=== PATIENT | female | born 1965 | race Caucasian/White ===

== ENCOUNTER 2017-08-17 14:24 | Observation (INO) ==
[2017-08-17] MEDS ORDERED: Naloxone 0.4 MG/ML INJ IVP PRN (17:23)
[2017-08-17] MEDS ORDERED: INSULIN LISPRO 100 UNIT SQ SCH (17:45)
--- NOTE | 2017-08-17 18:00 | Internal Med History&Physical ---
Date of Encounter: 08/17/17 Time of Encounter: 17:42 Assessment and Plan (1) Chest pain Current visit: Yes Status: Acute 52/female Transferred from another hospital to this hospital for persistent chest pain. EKG: Within acceptable range/no active ongoing cardiac issue. Echocardiogram: 09/2015: EF: 65%, normal diastolic function, no evidence of pulmonary hypertension. Holter monitor: 03/2016: Sinus rhythm, average heart rate 89 bpm, no arrhythmias , no significant ectopy Cardiac catheter: 09/2015: Stent placed from prior procedure in proximal LAD is patent, EF: 65% Plan: Admit as observation. Resume home medication. Cycle troponin. Echocardiogram. If 3 troponin negative/echocardiogram normal then please consider cardiology evaluation before ordering stress test. Qualifiers: Chest pain type: unspecified Qualified Code(s): R07.9 - Chest pain, unspecified (2) Diabetes Current visit: No Status: Acute We will follow the recommendations from subcutaneous insulin order set. Qualifiers: Diabetes mellitus type: type 2 Diabetes mellitus complication status: with circulatory complication Diabetes mellitus complication detail: with other circulatory complications Diabetes mellitus longitudinal float operator insulin use: unspecified longitudinal float operator insulin use status Qualified Code(s): E11.59 - Type 2 diabetes mellitus with other circulatory complications (3) HTN (hypertension) Current visit: No Status: Acute Within acceptable range Qualifiers: Hypertension type: essential hypertension Qualified Code(s): I10 - Essential (primary) hypertension (4) DVT prophylaxis Current visit: Yes Status: Acute SCD Medical decision making: This patient has a moderate to severe risk of worsening in spite of being on appropriate medication due to the underlying risk factors. Internal Medicine - H&P: HPI Chief complaint: chest pain Admitted From: Hospital to Hospital Transfer Plans for Post Hospital Care: Home History of present illness: 52/female Brief past medical history: Diabetes, hypertension, dyslipidemia, coronary artery disease, History of present medical illness :Ms. Schroeder is a 52 year old female who was transferred from [facility] to this hospital. This patient was hospitalized in the [facility] for more than 4 days for chest pain. Patient still has ongoing chest pain and she is very upset regarding same. Patient tells that her chest pain started initially around a week ago and it was precordial in nature, radiating to the jaw and the left arm, associated with pressure sensation like an elephant is sitting on her chest. Patient claims that she was receiving 2 mg morphine every 2 hours and at Hospital which was only able to control her pain marginally. Patient claims that minimal activity were some subtle chest pain and arrest and then medication helps her to get chest pain better. Patient denies abdominal pain, nausea, vomiting, dizziness and diarrhea. Patient's contracting officer is Dr. Beck from this healthcare system. Reason for transfer: Persistent ongoing chest pain for more than 5 days with initial cardiology workup negative. Family history: Strong coronary artery disease from mother sides Past Med Surg Social Fam HX - Past Medical History Medical history: arthritis, CHF, coronary artery disease, CVA, diabetes, GERD, hyperlipidemia, hypertension, kidney stones, migraine, myocardial infarction, renal disease, TIA Psychiatric history: anxiety, depression - Past Surgical History Surgical History: angioplasty/stent, cholecystectomy, hysterectomy, other - Social History Smoking Status: Never smoker Smokeless Tobacco Status: No Alcohol use: none Drug use: none - Family History Father Adopted: [place]: Riky BrianCataRae Age: 69 Family Member Ethnicity: Non- Living Status: Age at : 69 Cause of : brain anuerysm Hx Family Cardiac Disorders: Yes (CAD, double bypass) Hx Family Respiratory Disorders: No Hx Family Cancer: No Hx Family GI Disorders: No Hx Family Genitourinary Disorders: No Hx Family Endocrine Disorder: No Hx Family Musculoskeletal Disorders: Yes (Arthiritis) Hx Family Neuromuscular Disorders: No Hx Family Neurologic Disorders: Yes (Brain aneurysm) Hx Family HEENT Disorders: No Hx Family Autoimmune Disorders: No Hx Family Reproductive Disorders: No Hx Family Psychosocial Disorders: No Hx Family Medical Disorders: No Mother Adopted: [place]: Hermelinda Jang Age: 65 Family Member Ethnicity: Non- Living Status: Age at : 65 Cause of : colon cancer Hx Family Cardiac Disorders: Yes (7 bypasses, CAD, HTN) Hx Family Respiratory Disorders: No Hx Family Cancer: Yes (colon) Hx Family GI Disorders: No Hx Family Genitourinary Disorders: No Hx Family Endocrine Disorder: Yes (DM Type 1) Hx Family Musculoskeletal Disorders: Yes (Arthiritis,) Hx Family Neuromuscular Disorders: Yes (Neuropathy) Hx Family Neurologic Disorders: No Hx Family HEENT Disorders: No Hx Family Autoimmune Disorders: No Hx Family Reproductive Disorders: No Hx Family Psychosocial Disorders: No Hx Family Medical Disorders: No Internal Medicine - H&P: Meds Aspirin Enteric Coated [Aspirin EC] 81 mg PO DAILY 05/20/15 [History] Furosemide [Lasix] 20 mg PO DAILY 05/20/15 [History] Gabapentin [Neurontin] 800 mg PO QID 05/20/15 [History] Lisinopril [Zestril] 20 mg PO DAILY 05/20/15 [History] Metoprolol [Lopressor] 25 mg PO BID 05/20/15 [History] Potassium Chloride [Klor-Con Sprinkle] 10 meq PO DAILY 05/20/15 [History] Ropinerole [Requip] 1 mg PO QID 05/20/15 [History] Pantoprazole Sodium [Protonix] 40 mg PO DAILY 09/25/15 [History] clonazePAM [Klonopin] 2 mg PO HS 09/26/15 [History] Albuterol Sulfate [Ventolin Hfa] 2 puff IH Q4H 12/23/16 [History] Clopidogrel [Plavix] 75 mg PO DAILY 12/23/16 [History] Cyclobenzaprine [Flexeril] 10 mg PO TID 12/23/16 [History] Doxepin HCl 10 mg PO HS 12/23/16 [History] Escitalopram Oxalate 10 mg PO DAILY 12/23/16 [History] Ferrous Sulfate [Iron] 325 mg PO BID 12/23/16 [History] HYDROcodone/Acet 5/325 mg [Tererro 5-325 mg] 1 tab PO Q6H PRN #3 tab 12/23/16 [Rx] Insulin Glargine,Hum.rec.anlog [[place] Solostar] 40 units SQ DAILY 12/23/16 [ History] Insulin LISPRO [Humalog Kwikpen U-100] 100 unit SQ AD 12/23/16 [History] Isosorbide MONOnitrate (24 HR) [Imdur] 30 mg PO DAILY 12/23/16 [History] Lisinopril [Zestril] 5 mg PO DAILY 12/23/16 [History] Melatonin 3 mg PO HS 12/23/16 [History] Quetiapine Fumarate [SEROquel] 100 mg PO HS 12/23/16 [History] Ranolazine [Ranexa] 500 mg PO BID 12/23/16 [History] RisperiDONE [Risperdal] 0.5 mg PO BID 12/23/16 [History] Simvastatin [Zocor] 40 mg PO HS 12/23/16 [History] clonazePAM [Klonopin] 1 mg PO BID 12/23/16 [History] 3 Allergy/AdvReac Type Severity Reaction Status Date / Time ketorolac [From Toradol] Allergy Rash Verified 03/24/16 00:28 naproxen [From Naprosyn] Allergy Rash Verified 12/23/16 12:52 sulfamethoxazole Allergy Rash Verified 03/24/16 00:28 [From Bactrim] trimethoprim [From Bactrim] Allergy Rash Verified 03/24/16 00:28 tramadol AdvReac Nausea Verified 03/24/16 00:28 All Systems PM: A 10-system review of systems was performed and is negative for pertinent findings except as documented above in the HPI. - Constitutional Constitutional: no chills, no fever(s), no night sweats - EENT Eyes: no change in vision, no discharge, no pain, no photophobia Ears: no ear discharge, no ear pain, no tinnitus Nose, mouth and throat: no dysphagia, no nasal discharge, no neck pain, no sore throat - Cardiovascular Cardiovascular ROS IM: chest pain, diaphoresis, no dyspnea, no lightheadedness, no palpitations, no syncope - Respiratory Respiratory: no cough, no dyspnea, no wheezing, no excessive phlegm production - Gastrointestinal Gastrointestinal: no abdominal pain, no diarrhea, no hematemesis, no hematochezia, no melena, no nausea, no vomiting - Genitourinary Genitourinary: no change in urinary stream, no dysuria, no flank pain, no hematuria - Musculoskeletal Musculoskeletal ROS IM: no numbness, no tingling - Integumentary Integumentary IM: no rash, no unusual bruising - Neurological Neurological ROS: no confusion, no convulsions, no focal weakness, no numbness, no tingling, no tremor(s) - Hematologic/Lymphatic Hematologic/Lymphatic: no easy bruising - Constitutional Vitals: Temp Pulse Resp BP Pulse Ox 98.4 F 75 16 143/79 100 08/17/17 17:30 08/17/17 17:30 08/17/17 16:45 08/17/17 17:30 08/17/17 17:30 General appearance: Present: A&O X 3, pleasant, no acute distress, answers questions appropriately - Head Head exam: Present: atraumatic, normocephalic - Eye Eye exam: Present: PERRL, conjuntiva pink, sclera anicteric Pupils: Present: PERRL - Neck Neck exam general surgery: Present: supple, trachea midline. Absent: lymphadenopathy - Respiratory Respiratory exam: Present: CTAB. Absent: accessory muscle use, rales, rhonchi, wheezes - Cardiovascular Cardiovascular exam: Present: RRR, +S1, +S2. Absent: diastolic murmur, gallop, rubs, systolic murmur - GI/Abdominal GI/Abdominal exam: Present: normal bowel sounds, soft, no peritoneal signs. Absent: distended, tenderness - Extremities Exam Extremities exam: Present: warm, radial pulses palpable and symmetrical. Absent : calf tenderness, cyanotic, pedal edema - Neurological Exam Neurological exam: Present: CN II-XII intact, oriented X3, no focal deficits. Absent: pronater drift, facial droop, speech deficit - Skin Skin exam: Present: dry, intact
[2017-08-17] MEDS: *HR* Morphine 2 MG/ML SYRINGE IVP PRN ×3 (18:29→22:22)
[2017-08-17 18:39] LABS: Basophils % 0.3 %; Eosinophils # 0.1 K/mcL (0.0-0.6); Eosinophils % 1.6 %; Hematocrit 32.6 % (35.3-44.9); Hemoglobin 11.1 g/dL (11.5-15.4); Immature Granulocytes % 0.1 % (0-4); Lymphocytes # 2.8 K/mcL (0.6-4.6); Lymphocytes % 39.1 %; Mean Corpuscular Volume 85.1 fL (83.0-100.0); Mean Platelet Volume 9.7 fL (9.4-12.4); Monocytes # 0.4 K/mcL (0.0-1.3); Monocytes % 5.3 %; Neutrophils # 3.8 K/mcL (1.6-8.9); Platelet Count 233 K/mcL (140-400); Red Blood Count 3.83 M/mcL (3.82-4.97); Red Cell Distribution Width 12.9 % (11.5-14.5); Segmented Neutrophils % 53.6 %
[2017-08-17 19:00] LABS: Alanine Aminotransferase 49 Units/L (7-52); Albumin 3.9 g/dL (3.5-5.7); Albumin/Globulin Ratio 1.3 (1.1-2.2); Alkaline Phosphatase 149 Units/L (34-104); Aspartate Amino Transferase 21 Units/L (13-39); BUN/Creatinine Ratio 19 (6-26); Bilirubin,Total 0.3 mg/dL (0.3-1.0); Blood Urea Nitrogen 14 mg/dL (6-20); Calcium 9.3 mg/dL (8.6-10.3); Carbon Dioxide 32 mEq/L (23-29); Chloride 103 mEq/L (98-107); Globulin 3.1 g/dL (2.4-3.5); Glucose 97 mg/dL (70-105); Magnesium 2.3 mg/dL (1.6-2.6); Osmolality,Calculated 290 (280-300); Sodium 140 mEq/L (136-145); eGFR For African Americans > 60 (> 60); eGFR For Non-African Americans > 60 (> 60)
[2017-08-17] MEDS: Ranolazine 500 MG TAB.ER.12H PO SCH (20:15)
[2017-08-17] MEDS: risperiDONE 0.25 MG TABLET PO SCH (20:18)
[2017-08-17] MEDS: rOPINIRole 1 MG TABLET PO SCH (20:28)
[2017-08-17] MEDS: Gabapentin 400 MG CAPSULE PO SCH (20:28)
[2017-08-17] MEDS ORDERED: clonazePAM 1 MG TABLET PO SCH ×3 (21:00→21:48)
[2017-08-17] MEDS ORDERED: Doxepin Hcl [Doxepin Hcl] 10 MG PO SCH (21:00)
[2017-08-17] MEDS ORDERED: Melatonin 3 MG TABLET PO SCH (21:00)
[2017-08-18] MEDS: *HR* Morphine 2 MG/ML SYRINGE IVP PRN ×4 (00:34→08:46)
[2017-08-18 05:55] LABS: Basophils % 0.4 %; Eosinophils # 0.1 K/mcL (0.0-0.6); Eosinophils % 1.8 %; Hematocrit 32.4 % (35.3-44.9); Hemoglobin 10.8 g/dL (11.5-15.4); Immature Granulocytes % 0.1 % (0-4); Lymphocytes # 3.3 K/mcL (0.6-4.6); Lymphocytes % 49.4 %; Mean Corpuscular HGB Conc 33.3 g/dL (31.6-35.5); Mean Corpuscular Hemoglobin 28.6 pg (28.0-33.3); Mean Corpuscular Volume 85.7 fL (83.0-100.0); Mean Platelet Volume 9.9 fL (9.4-12.4); Monocytes # 0.3 K/mcL (0.0-1.3); Monocytes % 4.8 %; Neutrophils # 2.9 K/mcL (1.6-8.9); Platelet Count 244 K/mcL (140-400); Red Blood Count 3.78 M/mcL (3.82-4.97); Red Cell Distribution Width 13.2 % (11.5-14.5); Segmented Neutrophils % 43.5 %
[2017-08-18 06:04] LABS: INR 0.9
[2017-08-18 06:07] LABS: Activated Partial Thrombo Time 26.7 Seconds (26.0-36.0)
[2017-08-18 06:56] LABS: Alanine Aminotransferase 40 Units/L (7-52); Albumin 3.9 g/dL (3.5-5.7); Albumin/Globulin Ratio 1.3 (1.1-2.2); Alkaline Phosphatase 139 Units/L (34-104); Aspartate Amino Transferase 18 Units/L (13-39); BUN/Creatinine Ratio 17 (6-26); Bilirubin,Total 0.2 mg/dL (0.3-1.0); Blood Urea Nitrogen 13 mg/dL (6-20); Calcium 9.2 mg/dL (8.6-10.3); Carbon Dioxide 30 mEq/L (23-29); Chloride 103 mEq/L (98-107); Chol/HDL Ratio 5.3 (0-4.9); Cholesterol 181 mg/dL (< 200); Globulin 2.9 g/dL (2.4-3.5); Glucose 138 mg/dL (70-105); HDL Cholesterol 34 mg/dL (40-59); Magnesium 2.1 mg/dL (1.6-2.6); Osmolality,Calculated 292 (280-300); Phosphorous 3.4 mg/dL (2.7-4.5); Sodium 140 mEq/L (136-145); Total Protein 6.8 g/dL (6.4-8.9); Triglycerides 536 mg/dL (< 150); eGFR For African Americans > 60 (> 60); eGFR For Non-African Americans > 60 (> 60)
[2017-08-18] MEDS ORDERED: Aspirin Enteric Coated 81 MG Tablet PO SCH (09:00)
[2017-08-18] MEDS ORDERED: Furosemide 20 MG TABLET PO SCH (09:00)
[2017-08-18] MEDS ORDERED: Isosorbide MONOnitrate (24 HR) 30 MG TAB.ER.24H PO SCH (09:00)
[2017-08-18] MEDS ORDERED: Insulin DETEMIR 100 UNIT/ML X5UNITS SQ SCH (09:00)
[2017-08-18] MEDS ORDERED: *HR* Morphine 2 MG/ML SYRINGE IVP PRN (09:07)
[2017-08-18] MEDS ORDERED: Regadenoson 0.4 MG/5 ML SYRINGE IVP ONE (11:17)
--- NOTE | 2017-08-18 13:57 | Electrocardiograph Report ---
[address] [place] [address] Test Date: 2017-08-17 Pat Name: Mer Schroeder Department: 113 Room: 3B45 Gender: F Assistant Food Service Manager: : 1965 Requested By: Aquiles Briones Order Number: [id number] Reading MD: Jayne Carrillo Measurements Intervals [place] Rate: 72 P: 64 ND: 144 QRS: 38 QRSD: 86 T: 43 QT: 369 QTc: 393 Interpretive Statements SINUS RHYTHM Electronically Signed On 08-18-2017 13:55:20 EST by Jayne Carrillo
[2017-08-18] MEDS: Gabapentin 400 MG CAPSULE PO SCH ×3 (14:56→19:16)
[2017-08-18] MEDS: Ranolazine 500 MG TAB.ER.12H PO SCH (14:58)
[2017-08-18] MEDS: risperiDONE 0.25 MG TABLET PO SCH (14:59)
[2017-08-18] MEDS ORDERED: clonazePAM 1 MG TABLET PO ONE (15:00)
[2017-08-18] MEDS: rOPINIRole 1 MG TABLET PO SCH ×3 (15:01→19:16)
[2017-08-18 15:54] VITALS: BP 132/82
--- NOTE | 2017-08-18 16:41 | Discharge Summary ---
Date of Encounter: 08/18/17 Time of Encounter: 09:05 - Discharge Diagnosis (1) Chest pain Priority: Primary Status: Acute Comments: Patient presented to emergency department from [facility] for persistent chest pain and was admitted for 4 days. Onset of chest pain was approximately one week ago, midsternal radiating to posterior neck and occiput per her account today, admission note reports radiation to left and left arm. Patient states that it is a heaviness that is intermittent. Chest is tender to palpation and pain increases with deep inspiration. Both here and at [facility], she received receiving 2 mg of morphine every 2 hours which was only marginally able to control her pain. Due to patient's slurred speech and inability to focus her eyes, and decreased it to 2 mg every 4 hours. Patient verbalizes concern due to mother's history of coronary artery disease. Patient has risk factors including elevated triglycerides, poorly controlled diabetes, and hypertension. Echocardiogram showed LVEF of 60% with normal LV diastolic function and no significant valvular dysfunction. Perfusion imaging was negative for ischemia or infarct for stress test with gated EF of 65%. Suggest the chest pain is primarily musculoskeletal in nature. I did run an [facility] report, patient receives gabapentin and clonazepam regularly , no narcotic analgesic prescriptions since Dec, 2016. Patient may continue heat or ice to chest wall, Tylenol for pain. Qualifiers: Chest pain type: unspecified Qualified Code(s): R07.9 - Chest pain, unspecified (2) Diabetes Priority: Secondary Status: Chronic Comments: Uncontrolled. A1c 12.2% one year ago. Patient could benefit from continued diabetes education. After discharge continue Accu-Chek schedule and home medications. Continue to encourage diabetic diet. Qualifiers: Diabetes mellitus type: type 2 Diabetes mellitus complication status: with circulatory complication Diabetes mellitus complication detail: with other circulatory complications Diabetes mellitus laser print operator insulin use: unspecified laser print operator insulin use status Qualified Code(s): E11.59 - Type 2 diabetes mellitus with other circulatory complications (3) HTN (hypertension) Priority: Secondary Status: Chronic Comments: Chronic. Continue home medications. Qualifiers: Hypertension type: essential hypertension Qualified Code(s): I10 - Essential (primary) hypertension (4) Coronary artery disease Priority: Secondary Status: Chronic Comments: Chronic. Patient had a cardiac catheter in September, with stent placed from prior procedure and proximal LAD was patent, EF preserved. Continue aspirin, Plavix, Imdur, beta jean-claude, and Ranexa. Qualifiers: Coronary Disease-Associated Artery/Lesion type: menominee artery [place] vs. transplanted heart: menominee heart Associated angina: with unspecified angina Qualified Code(s): I25.119 - Atherosclerotic heart disease of menominee coronary artery with unspecified angina pectoris (5) DVT prophylaxis Priority: Secondary Status: Acute Comments: Encourage early ambulation. - Discharge Medications Home Medications: Aspirin Enteric Coated [Aspirin EC] 81 mg PO DAILY 05/20/15 [History] Gabapentin [Neurontin] 800 mg PO QID 05/20/15 [History] Potassium Chloride [Klor-Con Sprinkle] 10 meq PO DAILY 05/20/15 [History] Ropinerole [Requip] 1 mg PO QID 05/20/15 [History] Pantoprazole Sodium [Protonix] 40 mg PO DAILY 09/25/15 [History] Albuterol Sulfate [Ventolin Hfa] 2 puff IH Q4H PRN 12/23/16 [History] Clopidogrel [Plavix] 75 mg PO DAILY 12/23/16 [History] Cyclobenzaprine [Flexeril] 10 mg PO TID PRN 12/23/16 [History] Ferrous Sulfate [Iron] 325 mg PO BID 12/23/16 [History] Insulin Glargine,Hum.rec.anlog [[place]] 40 units SQ DAILY 12/23/16 [ History] Insulin LISPRO [Humalog Kwikpen U-100] 100 unit SQ AD 12/23/16 [History] Isosorbide MONOnitrate (24 HR) [Imdur] 30 mg PO DAILY 12/23/16 [History] Melatonin 3 mg PO HS 12/23/16 [History] clonazePAM [Klonopin] 1 mg PO BID 12/23/16 [History] Escitalopram [Lexapro] 10 mg PO DAILY tablet 08/18/17 [Rx] Furosemide [Lasix] 20 mg PO DAILY tablet 08/18/17 [Rx] Lisinopril [Zestril] 5 mg PO DAILY tablet 08/18/17 [Rx] Metoprolol [Lopressor] 25 mg PO BID tablet 08/18/17 [Rx] Patient Taking Own Medication 1 each PO HS each 08/18/17 [Rx] Quetiapine Fumarate [Seroquel] 100 mg PO HS tablet 08/18/17 [Rx] Ranolazine [Ranexa] 500 mg PO BID tab.er.12h 08/18/17 [Rx] Simvastatin [Zocor] 40 mg PO HS tablet 08/18/17 [Rx] risperiDONE [RisperDAL] 0.5 mg PO BID tablet 08/18/17 [Rx] Allergies/Adverse Reactions: 3 Allergy/AdvReac Type Severity Reaction Status Date / Time ketorolac [From Toradol] Allergy Rash Verified 08/18/17 11:14 naproxen [From Naprosyn] Allergy Rash Verified 08/18/17 11:14 sulfamethoxazole Allergy Rash Verified 08/18/17 11:14 [From Bactrim] trimethoprim [From Bactrim] Allergy Rash Verified 08/18/17 11:14 tramadol AdvReac Nausea Verified 08/18/17 11:14 Procedures/tests Complete & Pending: Procedures Performed prior 72 hours Category Date Time Status NM prema perf SPECT multi [NM] Routine Exams 08/18/17 10:29 Taken ECG 12 lead ECG [ECG] Routine Y 08/17/17 17:23 Completed EV echocardiogram Routine Y 08/18/17 18:09 Completed SP pharm nuclear stress Routine Y 08/18/17 10:28 Completed Date of admission: 08/17/17 16:38 Discharging clinician: Jacquie Maldonado Anticipated date of discharge: 08/18/17 - Patient Status Disposition: Home, Self-Care Condition: Good Functional capacity at discharge: independent ambulation Overall status at discharge: patient is back to baseline - Discharge Instructions Follow Up With: Keeley Grimes DIVISION HUMAN RESOURCES MANAGER [Advanced Practice Nurse] - 08/25/17 2:00 pm Additional Instructions: Follow up with your PCP in the next 7-10 days for a recheck. Return to your normal diet and activities as tolerated. Resume your normal home medications Return to the ER as needed for any other problems or concerns or if your symptoms return or worsen. - Diet and Activity Activity: increase activity as tolerated Diet: diabetic diet, low fat, low cholesterol Hospital course: Ms. Schroeder is a 52 year old female with PMH of uncontrolled DM, CAD, peripheral neuropathy, hypotension. She presents to ER from [facility] where she had been admitted for 4 days for chest pain. Pain was only controlled with Morphine IV. Pain is reproducible with palpation and deep inspiration. Stress test negative, Echo with pEF and no valvular dysfunction. CXR negative, as well as troponins. Recommend ice/heat to chest wall and tylenol for pain. Labs and vitals stable, pt ready for discharge. - Time Spent with Patient Total time spent providing and/or coordinating discharge services: - Constitutional Vitals: Temp Pulse Resp BP Pulse Ox 98.1 F 80 16 132/82 99 08/18/17 15:25 08/18/17 15:25 08/18/17 15:25 08/18/17 15:25 08/18/17 15:25 General appearance: Present: A&O X 3, pleasant, no acute distress, answers questions appropriately - Head Head exam: Present: atraumatic, normocephalic - Eye Eye exam: Present: PERRL, conjuntiva pink, sclera anicteric Pupils: Present: PERRL - Neck Neck exam general surgery: Present: supple, trachea midline. Absent: lymphadenopathy - Respiratory Respiratory exam: Present: chest wall tenderness, CTAB. Absent: accessory muscle use, rales, respiratory distress, rhonchi, wheezes - Cardiovascular Cardiovascular exam: Present: RRR, +S1, +S2. Absent: diastolic murmur, gallop, rubs, systolic murmur - GI/Abdominal GI/Abdominal exam: Present: normal bowel sounds, soft. Absent: distended, hepatomegaly, tenderness - Extremities Exam Extremities exam: Present: warm, radial pulses palpable and symmetrical. Absent : calf tenderness, cyanotic, pedal edema - Neurological Exam Neurological exam: Present: alert, oriented X3, no focal deficits. Absent: altered, facial droop, speech deficit - Skin Skin exam: Present: dry, intact, normal color, warm. Absent: rash
[2017-08-18] MEDS ORDERED: 0.9 % Sodium Chloride 1,000 ML IVC SCH (17:00)
== END 2017-08-18 20:30 | disposition home or self-care (01) ==
LOC: 3BNU
PROVIDERS: ADMIT Internal Medicine; ATTEND Internal Medicine